=== PATIENT | male | born 1950 | race Caucasian/White ===

== ENCOUNTER 2019-09-20 10:23 | Outpatient (CLI) | payer MEDICARE, OTHER ==
[~2019-09-20] VITALS: Ht 177 cm; Wt 128.0 kg
[~2019-09-20 10:23] MED LIST: ASPI-875 PO; BENZ200C25 PO; CIPR-120 PO; CODE118S2 PO; DXZS2T PO; HYDR-34 PO; LOSA100T7 PO; METR500T PO; MTF500T PO; OMEP20CA12 PO; OXYC-12 PO; [UNRECOGNIZED DRUG - OTHER] PO; [UNRECOGNIZED DRUG - OTHER] PO
[2019-09-20] MEDS ORDERED: ATOR40TA70 PO (12:09)
[2019-09-20] MEDS ORDERED: ASPI-586 PO (12:09)
[2019-09-20] MEDS ORDERED: OMEP-280 PO (12:09)
[2019-09-20] MEDS ORDERED: KRIL1CAP12 PO (12:09)
[2019-09-20] MEDS ORDERED: SITA1TAB6 PO (12:09)
[2019-09-20] MEDS ORDERED: MELO15TA39 PO (12:09)
[2019-09-20] MEDS ORDERED: DOXA4TAB2 PO (12:09)
[2019-09-20] MEDS ORDERED: TRAM50TA3 PO (12:09)
[2019-09-20] MEDS ORDERED: GLUC-116 PO (12:09)
[2019-09-20] MEDS ORDERED: LOSA100T57 PO (12:09)
== END 2019-09-20 12:13 | disposition home or self-care (01) ==
LOC: PREOP 10:23
PROVIDERS: ATTEND Orthopaedic Surgery
DX: Z01.818 Encounter for other preprocedural examination (principal)
CPT/HCPCS: 87081

== ENCOUNTER 2019-09-27 08:42 | Day surgery (SDC) | payer MEDICARE, OTHER ==
--- NOTE | 2019-09-07 11:52 | HISTORY AND PHYSICAL ---
DATE OF SERVICE: DATE OF ADMISSION: 09/27/2019. This will be for outpatient surgery, left rotator cuff repair on 09/27/2019. HISTORY OF PRESENT ILLNESS: The patient is a 68-year-old gentleman with progressively worsening left shoulder pain and weakness. An MRI revealed a retracted supraspinatus tear. He reports pain and weakness with loss of function in the left shoulder. He has tried activity modifications and home therapy without relief. Due to functional impairment and failure to improve with conservative measures, the patient elected to proceed with surgical intervention. REVIEW OF SYSTEMS: No chest pain, no shortness of breath, no dysuria. PAST MEDICAL HISTORY: Diabetes mellitus, hypertension, osteoarthritis. PAST SURGICAL HISTORY: Appendectomy, inguinal herniorrhaphy, right knee meniscus, tonsillectomy, right shoulder, right total knee arthroplasty. FAMILY HISTORY: Diabetes. PRIMARY CARE PROVIDER: MEDICATIONS: Janumet, losartan, atorvastatin, omeprazole, aspirin, tramadol, meloxicam, doxazosin, methocarbamol, Tylenol. ALLERGIES: No known drug allergies. SOCIAL HISTORY: The patient denies alcohol and tobacco use. PHYSICAL EXAMINATION: GENERAL: The patient is a well-developed, well-nourished, in no acute distress. HEENT: Normocephalic, atraumatic. Pupils are equal, round and reactive to light. Oropharynx is clear. NECK: Supple, no lymphadenopathy. LUNGS: Clear to auscultation bilaterally. HEART: Regular rate and rhythm. ABDOMEN: Soft, nontender, nondistended. EXTREMITIES: Left shoulder demonstrates weakness with abduction and external rotation. full active forward elevation, external and internal rotation. Positive Neer sign, positive Vasquez sign. He has negative Spurling's maneuver. IMPRESSION: Left shoulder rotator cuff tear. PLAN: Left shoulder arthroscopy with possible biceps tenotomy, acromioplasty and open rotator cuff repair. Risks, benefits, options, ramifications and recovery were discussed at length with the patient. He understands and wishes to proceed. Job ID: [id number] DocumentID: [id number] Dictated Date: 09/07/2019 11:30:43 Laboratory Secretary Date: 09/07/2019 11:51:03 Dictated By: ANGUS ALEGRE MD
[~2019-09-27] VITALS: Ht 177 cm; Wt 128.0 kg
[2019-09-27] VITALS (11 sets, daily range): BP systolic 18–120; BP diastolic 54–82
[~2019-09-27 08:42] MED LIST changes: +ASPI-586 PO; +ATOR40TA70 PO; +DOXA4TAB2 PO; +GLUC-116 PO; +KRIL1CAP12 PO; +LOSA100T57 PO; +MELO15TA39 PO; +OMEP-280 PO; +SITA1TAB6 PO; +TRAM50TA3 PO
[2019-09-27] MEDS ORDERED: LACTATED RINGERS 1,000 ML IV PRN (08:45)
[2019-09-27] MEDS ORDERED: ceFAZolin INJECTION 1,000 MG in WATER (STERILE) FOR INJECTION 10 ML IV ONE (08:45)
[2019-09-27] MEDS ORDERED: fentaNYL INJECTION 100 MCG/2 ML AMP ONE (09:14)
[2019-09-27] MEDS ORDERED: MIDAZOLAM 2 MG/2 ML (VERSED) VIAL ONE (09:14)
[2019-09-27] MEDS ORDERED: BUPIVACAINE 0.25% 30 ML (SENSORCAINE) VIAL ONE ×2 (09:14→10:01)
--- NOTE | 2019-09-27 09:17 | Progress Note-Pre Operative ---
Pre-Operative Progress Note H&P Reviewed The H&P was reviewed, patient examined and no changes noted. Date Seen by Provider: Sep 27, 2019 Time Seen by Provider: 09:17 Date H&P Reviewed: Sep 27, 2019 Time H&P Reviewed: 09:17 Pre-Operative Diagnosis: left rotator cuff tear ANGUS ALEGRE MD Sep 27, 2019 09:17
--- NOTE | 2019-09-27 09:20 | Progress Note-Post Operative ---
Post-Operative Progess Note Surgeon (s)/Wildlife Refuge Manager (s) Surgeon ANGUS ALEGRE MD Wildlife Refuge Manager: Vik Chou Pre-Operative Diagnosis left rotator cuff tear Post-Operative Diagnosis left rotator cuff tear Procedure & Operative Findings Date of Procedure 09/27/19 Procedure Performed/Findings left shoulder arthroscopic acromioplasty and open rotator cuff repair Anesthesia Type GETA plus interscalene Estimated Blood Loss Estimated blood loss (mL): minimal Specimens/Packing Specimens Removed none Packing: none ANGUS ALEGRE MD Sep 27, 2019 09:20
[2019-09-27] MEDS ORDERED: oxyCODONE/APAP 5/325MG (PERCOCET 5) TABLET PO PRN (09:30)
[2019-09-27] MEDS ORDERED: GLYCOPYRROLATE 0.2 MG/ML (ROBINUL) 2 ML VIAL ONE (09:46)
[2019-09-27] MEDS ORDERED: proPOfol 200 MG/20 ML (DIPRIVAN) VIAL IV ONE (09:46)
[2019-09-27] MEDS ORDERED: ONDANSETRON 4 MG/2 ML (SDV) Z0FRAN ONE (09:46)
[2019-09-27] MEDS ORDERED: SEVOFLURANE (ULTANE) 15 ML INHAL SOLN ONE (09:46)
[2019-09-27] MEDS ORDERED: LIDOCAINE PF 2% 5 ML (XYLOCAINE) VIAL ONE (09:46)
[2019-09-27] MEDS ORDERED: NEOSTIGMINE 3 MG/3 ML VIAL ONE (09:46)
[2019-09-27] MEDS ORDERED: ROCURONIUM 10 MG/ML 5 ML SYRINGE IV ONE (09:46)
[2019-09-27] MEDS ORDERED: morphine PF (DURAMORPH) 10 MG/10 ML AMP ONE (10:01)
[2019-09-27] MEDS ORDERED: MEPERIDINE (DEMEROL) INJ 50 MG/ML IVP ONE (12:30)
[2019-09-27] MEDS ORDERED: ONDANSETRON 4 MG/2 ML (SDV) Z0FRAN IVP PRN (12:30)
[2019-09-27] MEDS ORDERED: morphine INJ 10 MG/ML 1ML (SYR OR VIAL) IVP ONE (12:30)
[2019-09-27] MEDS ORDERED: ACHD5005 PO (13:46)
--- NOTE | 2019-09-27 15:00 | Anesthesia-General Post-Op ---
General Patient Condition Mental Status/LOC: Same as Preop Cardiovascular: Satisfactory Nausea/Vomiting: Absent Respiratory: Satisfactory Pain: Controlled Complications: Absent Post Op Complications Complications None Follow Up Care/Instructions Patient Instructions None needed. Anesthesia/Patient Condition Patient Condition Patient was seen after the procedure and he was doing well, no complaints, stable vital signs, no apparent adverse anesthesia problems. Pt did have some pain in PACU but was improved with medication. No other issues. [place] DO Sep 27, 2019 14:59
--- NOTE | 2019-09-27 20:35 | OPERATIVE REPORT ---
DATE OF SERVICE: PREOPERATIVE DIAGNOSIS: Left rotator cuff tear. POSTOPERATIVE DIAGNOSIS: Left rotator cuff tear. PROCEDURES: 1. Left shoulder open rotator cuff repair. 2. Left shoulder arthroscopic acromioplasty. SURGEON: Saud Alegre MD CONSIGNEE: Vik Chou, who assisted throughout the procedure and closed the incisions. ANESTHESIA: Interscalene nerve block plus general endotracheal by Dr. Lopes. ESTIMATED BLOOD LOSS: Minimal. DRAINS: None. COMPLICATIONS: None. POSTOPERATIVE PLAN: Sling wear and passive range of motion for 4 weeks. The patient was transferred to the recovery room awake and in stable condition. STATEMENT OF MEDICAL NECESSITY: The patient is a 69-year-old right hand dominant gentleman with complaints of left shoulder pain and weakness. He tried rest, activity modifications, anti-inflammatories and home exercise without relief. An MRI revealed a large retracted three tendon rotator cuff tear. Due to functional impairment and failure to improve with conservative measures, the patient elected to proceed with surgical intervention. Examination under anesthesia revealed range of motion of forward elevation of 170 degrees, external rotation 90 degrees and internal rotation of 70 degrees. Arthroscopic findings demonstrated retracted supraspinatus, infraspinatus and subscapularis tear. The supraspinatus was retracted to the glenoid. The glenoid demonstrated mild grade II chondral changes centrally with no unstable chondral flaps. The biceps anchor was absent. The remainder of the labrum was intact. DESCRIPTION OF PROCEDURE: After risks and benefits of procedure were discussed and questions were answered, an informed consent was signed and placed on chart. The operative site was confirmed in the preoperative holding area initialed by the surgeon. The patient was transferred to the operating room and after adequate levels of regional plus general endotracheal anesthetic were obtained, a timeout was called, confirming the operative site. Examination under anesthesia was performed. The left upper extremity and shoulder were prepped and draped in the usual sterile fashion. Shoulder joint was injected with 20 mL of fluid. A standard posterior portal was placed. A diagnostic arthroscopy was carried out with the above findings noted. Scope was redirected into the subacromial space. Lateral portal was created and bursectomy was performed with a shaver and the acromion was planed to a flat type 1 acromion. The lateral portal was then extended. The deltoid was split in line with its fibers leaving attached to the acromion. The supraspinatus could not be mobilized at all. Two anchors were placed, one for the anterior portion of the tear and one for the posterior. This brought the infraspinatus and subscapularis superiorly leaving the superior aspect of the head uncovered. The rotator cuff was repaired using a modified Rogers-Nadir repair. The wound was copiously irrigated. The deltoid was repaired in [id number] fashion using #2 FiberWire. The wound was further irrigated, 3-0 Vicryl was used to reapproximate subcutaneous tissue. The portal sites and skin were closed with 4-0 nylon. A soft dressing and sling were applied and the patient was transferred to the recovery room awake and in stable condition. Job ID: [id number] DocumentID: [id number] Dictated Date: 09/27/2019 12:25:41 Forest Ecology Professor Date: 09/27/2019 20:34:54 Dictated By: SAUD ALEGRE MD
== END 2019-09-27 14:45 | disposition home or self-care (01) ==
LOC: SDC 08:42
PROVIDERS: ATTEND Orthopaedic Surgery
DX: S46.012A Strain of muscle(s) and tendon(s) of the rotator cuff of left shoulder, initial encounter (principal); K21.9 Gastro-esophageal reflux disease without esophagitis; I10 Essential (primary) hypertension; E11.9 Type 2 diabetes mellitus without complications; E78.5 Hyperlipidemia, unspecified; E66.01 Morbid (severe) obesity due to excess calories; M19.90 Unspecified osteoarthritis, unspecified site; Z90.89 Acquired absence of other organs; Z96.651 Presence of right artificial knee joint; Z79.899 Other long term (current) drug therapy; Z68.41 Body mass index [BMI] 40.0-44.9, adult
CPT/HCPCS: 82962